=== PATIENT | male | born 1975 | race Hispanic/Latino ===

== ENCOUNTER → 2017-11-03 | Outpatient (CLI) | payer BC ==
[2017-11-03 08:20] LABS: BASOPHILS % 0.6 % (0.0-1.0); EOSINOPHILS # (AUTO) 0.1 (0.0-0.4); EOSINOPHILS % 1.7 % (0.0-6.0); HEMATOCRIT 43.3 % (38.2-49.6); HEMOGLOBIN 14.3 g/dL (14.0-18.0); LYMPHOCYTES # (AUTO) 1.2 (1.0-3.2); LYMPHOCYTES % 24.2 % (18.0-39.1); MEAN CORPUSCULAR HEMOGLOBIN 29.4 pg (28-32); MEAN CORPUSCULAR VOLUME 88.9 fL (81-99); MONOCYTES # (AUTO) 0.2 (0.2-0.8); NEUTROPHILS # (AUTO) 3.3 (2.1-6.9); NEUTROPHILS % 68.3 % (38.7-80.0); PLATELET COUNT 274 x10e3/uL (140-360); RED BLOOD COUNT 4.87 x10e6/uL (4.3-5.7); RED CELL DISTRIBUTION WIDTH 12.4 % (11.7-14.4)
[2017-11-03 08:36] LABS: INR 0.93; PARTIAL THROMBOPLASTIN TIME 26.9 seconds (23.8-35.5); PROTHROMBIN TIME 12.9 seconds (11.9-14.5)
[2017-11-03 08:42] LABS: ALBUMIN 4.4 g/dL (3.5-5.0); BILIRUBIN,DIRECT 0.3 mg/dL (0.0-5.0)
[2017-11-03 09:02] LABS: FERRITIN 41.25 ng/mL (21.81-274.66)
== END ==
LOC: LAB 07:55
PROVIDERS: ATTEND Internal Medicine Gastroenterology
DX: I10 Essential (primary) hypertension (principal); E66.3 Overweight; Z71.3 Dietary counseling and surveillance
CPT/HCPCS: 36415; 80076; 82105; 82728; 83540; 84466; 85025; 85610; 85730; 86039; 86255

== ENCOUNTER 2020-05-03 15:54 | Emergency (ER) | payer BC, OTHER ==
[~2020-05-03] VITALS: Ht 167.6 cm; Wt 68.9 kg
--- NOTE | 2020-05-03 16:27 | Emergency Department Note ---
History of Present Illnes History of Present Illness History of Present Illness This is a 45 year old male c/o URI symptoms for few days . 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 Any updates have been documented here. Past Medical History Recent Fever: No Clinical Suspicion of Infectio: No New/Unexplained Change in Ment: No Past Medical History: None Past Surgical History: None Social History Smoking Cessation: Unknown if ever smoked Counseling Performed: No Any Illegal Drug Use: No TB Exposure/Symptoms: No Physically hurt or threatened: No Family History Family history of heart diseas: No Other Any Pre-Existing Lines (PICC,: No Review of Systems Review of Systems Constitutional: Reports no symptoms EENTM: Reports throat pain Cardiovascular: Reports no symptoms Respiratory: Reports no symptoms Gastrointestinal: Reports no symptoms Genitourinary: Reports no symptoms Musculoskeletal: Reports no symptoms Integumentary: Reports no symptoms Neurological: Reports no symptoms Psychological: Reports no symptoms Endocrine: Reports no symptoms Hematological/Lymphatic: Reports no symptoms Physical Exam Physical Exam CONSTITUTIONAL Constitutional: Present well-developed, Present well-nourished HENT HENT: Present normocephalic, Present atraumatic, Present oropharynx clear/moist, Present nose normal, Present erythema HENT L/R: Present left ext ear normal, Present right ext ear normal EYES Eyes: Reports PERRL, Reports conjunctivae normal NECK Neck: Present ROM normal PULMONARY Pulmonary: Present effort normal, Present breath sounds normal CARDIOVASCULAR Cardiovascular: Present regular rhythm, Present heart sounds normal, Present capillary refill normal, Present normal rate GASTROINTESTINAL Abdominal: Present soft, Present nontender, Present bowel sounds normal GENITOURINARY Genitourinary: Present exam deferred SKIN Skin: Present warm, Present dry MUSCULOSKELETAL Musculoskeletal: Present ROM normal NEUROLOGICAL Neurological: Present alert, Present oriented x 3, Present no gross motor or sensory deficits PSYCHOLOGICAL Psychological: Present mood/affect normal, Present judgement normal Results Laboratory Lab results reviewed: Yes (covid 19) Assessment & Plan Medical Decision Making MDM since his daughter has URI/covid symptoms will do covid testing Assessment & Plan Final Impression: (1) Viral infection (2) Pharyngitis Depart Disposition: HOME, SELF-custodial Meds Active Scripts Diphenhydra/Phenyleph/Acetamin (THERAFLU COLD AND COUGH POWDER) 1 Each Powd.pack, 1 PACKET PO Q6H PRN for fever and or pain, #12 Prov:SOFIYA PAULSON MD 05/03/20 Amoxicillin (AMOXICILLIN) 500 Mg Capsule, 1 TAB PO TID, #30 Prov:SOFIYA PAULSON MD 05/03/20 SOFIYA PAULSON MD May 03, 2020 16:27
[2020-05-03] MEDS ORDERED: IBUPROFEN 200 MG TAB PO ONE (16:45)
[2020-05-03] MEDS ORDERED: THERAFLU COLD1 EAC4 PO (16:59)
[2020-05-03] MEDS ORDERED: AMOXICILLIN500 MG PO (16:59)
--- NOTE | 2020-05-03 17:00 | NUR ---
Dr. Redman stopped me on my way to do the strep test and he said to cancel the strep testing.
[2020-05-03] MEDS ORDERED: LISINOPRIL10 MG PO (18:09)
--- NOTE | 2020-05-04 10:34 | NUR ---
Informed of positive results by
== END 2020-05-03 17:24 | disposition home or self-care (01) ==
LOC: FSED 15:54
DX: U07.1 COVID-19 (principal); J02.9 Acute pharyngitis, unspecified; B34.9 Viral infection, unspecified
CPT/HCPCS: 87635; 99283